=== PATIENT | male | born 1945 | race Caucasian/White ===

== ENCOUNTER 2017-08-16 06:47 | Day surgery (SDC) | payer MEDICARE, MEDICAID ==
--- NOTE | 2017-08-15 09:47 | Pre-Procedure Note/Attestation ---
Pre-Procedure Note/Attestation Complete Prior to Procedure Planned Procedure: bilateral Procedure Narrative: 1- Ptosis correction upper lids. 2- Entropion correction upper lids. 3-Blepharoplasty uppers lids. 4-conjunctivoplasty with amniotic membrane graft, both eyes. 5-pterygium resection with amniotic membrane graft,both eyes. 6- symblepharon removal with amniotic membrane graft, both eyes. Indications for Procedure Pre-Operative Diagnosis: 1- Blepharoptosis upper lids 2-Entropion upper lids. 3-Blepharochalasis upper lids 4- Conjunctivochalasis, both eyes. 5-pterygium, both eyes. 6-symblepharon, both eyes. Attestation I attest that I discussed the nature of the procedure; its benefits; risks and complications; and alternatives (and the risks and benefits of such alternatives ), prior to the procedure, with the patient (or the patient's legal sales solutions representative). I attest that, if there was a reasonable possibility of needing a blood transfusion, the patient (or the patient's legal sales solutions representative) was given the [facility] standardized written summary, pursuant to the Yordan Maryann Blood Safety Act ([place] Health and Safety Code # 1645, as amended). I attest that I re-evaluated the patient just prior to the surgery and that there has been no change in the patient's H&P, except as documented below: Emerson Seals MD Aug 15, 2017 09:47
[2017-08-16] VITALS (9 sets, daily range): BP systolic 122–150; BP diastolic 71–87
[~2017-08-16] VITALS: Ht 167.6 cm; Wt 95.3 kg
[~2017-08-16 06:47] MED LIST: ASPIR 8181 MG ORAL; Akten 3.5% 1ml Btl BOTH EYES ONE; LOTREL 5-20 MG1 EACH ORAL; METOPROLOL TART50 M1 ORAL; Maxitrol Opth Oint 3.5gm BOTH EYES ONE; PLAVIX75 MG ORAL
[2017-08-16] MEDS ORDERED: Lidocaine 2% 20mg/ml/Epi 0.005mg/ml 20ml vial ONE (07:26)
[2017-08-16] MEDS ORDERED: Maxitrol Opth Oint 3.5gm ONE (07:26)
[2017-08-16] MEDS ORDERED: Maxitrol Opth Susp 5ml ONE (07:26)
[2017-08-16] MEDS ORDERED: Bupivacaine 0.75% 30ml vial INJ ONE ×2 (07:27→07:28)
[2017-08-16] MEDS ORDERED: Tetracaine 0.5% Opth 4ml Soln ONE (07:27)
[2017-08-16] MEDS ORDERED: Lidocaine 2% 20mg/ml/Epi 0.005mg/ml 20ml vial INJ ONE (07:30)
[2017-08-16] MEDS ORDERED: Povidone-Iodine 5% opth solution ONE (07:46)
[2017-08-16] MEDS ORDERED: BSS 15ml BTL ONE (07:46)
[2017-08-16] MEDS ORDERED: LR 1000ml 1,000 ML IVLG SCH (07:47)
--- NOTE | 2017-08-16 07:54 | Anethesia Preoperative Eval ---
Anesthesia Pre-op PMH/ROS General Date of Evaluation: Aug 16, 2017 Time of Evaluation: 07:40 Anesthesiologist: Sera ASA Score: ASA 3 Mallampati Score Class I : Soft palate, uvula, fauces, pillars visible Class II: Soft palate, uvula, fauces visible Class III: Soft palate, base of uvula visible Class IV: Only hard plate visible Mallampati Classification: Class II Surgeon: Bozena Diagnosis: Blepharochalasis, conjuntaivolaisis, ptyrigium Anesthesia History: none - Blepharoplasty, conjunctivoplasty, ptyregium Allergies: Coded Allergies: No Known Allergies (Unverified , 08/15/17) Past Medical History Cardiovascular: Reports: HTN, CAD, NE; Denies: valve dz, arrhythmia, other Pulmonary: Denies: asthma, COPD, PRAVEEN, other Gastrointestinal/Genitourinary: Denies: GERD, CRI, ESRD, other Neurologic/Psychiatric: Denies: dementia, CVA, depression/anxiety, TIA, other Endocrine: Reports: DM; Denies: hypothyroidism, steroids, other HEENT: Reports: cataract (L), cataract (R); Denies: glaucoma, [place] (L), [place] (R), other Hematology/Immune: Denies: anemia, DVT, bleeding disorder, other Musculoskeletal/Integumentary: Reports: OA PMH Narrative: DM, HTN, CAD (s/p CABG and stents X 6), OA PSxH Narrative: CABG, coronary stents, bilateral TKR, lumbar surgery Anesthesia Pre-op Phys. Exam Physician Exam Last Vital Signs Date Time Temp Pulse Resp B/P (MAP) Pulse Ox O2 Delivery O2 Flow Rate FiO2 08/16/17 07:24 97.7 53 20 133/87 96 Room Air 97.7 Constitutional: NAD Neurologic: CN 2-12 intact Cardiovascular: RRR, no M/R/G Respiratory: CTA Gastrointestinal: S/NT/ND Airway Exam Mallampati Score: Class II MO: full ROM: full Teeth: intact Anesthesia Pre-op A/P Risk Assessment & Plan Assessment: Class 3 patient for eye surgery including blepharoplasty Plan: MAC Status Change Before Surgery: No Pre-Antibiotics Drug: None Yordan Zamora MD Aug 16, 2017 07:54
--- NOTE | 2017-08-16 07:54 | Immediate Post-Op Evaluation ---
Immediate Post-Op Evalulation Immediate Post-Op Evalulation Procedure: Blepharoplasty, conjunctivoplasty, ptyregium Date of Evaluation: Aug 16, 2017 Time of Evaluation: 10:50 IV Fluids: 500 Blood Pressure Systolic: 130 Blood Pressure Diastolic: 82 Pulse Rate: 50 Respiratory Rate: 21 O2 Sat by Pulse Oximetry: 96 Temperature (Fahrenheit): 97.6 Pain Score (1-10): 0 Nausea: No Vomiting: No Complications No complication Patient Status: awake, patent, none Hydration Status: adequate Drug: None Yordan Zamora MD Aug 16, 2017 07:54
[2017-08-16] MEDS ORDERED: Alfentanil 2ml Inj ONE (08:00)
[2017-08-16] MEDS ORDERED: LR 1000ml 1,000 ML IV SCH (08:00)
[2017-08-16] MEDS ORDERED: fentaNYL 100 mcg/2 mL IV PRN (08:00)
[2017-08-16] MEDS ORDERED: NS Irrig 1000ml ONE (08:00)
[2017-08-16] MEDS ORDERED: DiphenhydrAMINE 50mg/ml Inj IVP PRN (08:00)
[2017-08-16] MEDS ORDERED: Sterile Water Irrig 1000ml IRRIG ONE (08:00)
[2017-08-16] MEDS ORDERED: LR 1000ml ONE (08:00)
[2017-08-16] MEDS ORDERED: Midazolam 2mg/2ml Inj ONE (08:00)
[2017-08-16] MEDS ORDERED: Maxitrol Opth Oint 3.5gm OP ONE (09:20)
--- NOTE | 2017-08-16 10:43 | 48 Hour Post Anesthesia Eval ---
Post Anesthesia Evaluation Procedure: Blepharoplasty, conjunctivoplasty, ptyregium Date of Evaluation: Aug 16, 2017 Time of Evaluation: 11:15 Blood Pressure Systolic: 134 0: 72 Pulse Rate: 58 Respiratory Rate: 20 O2 Sat by Pulse Oximetry: 96 Airway: patent Nausea: No Vomiting: No Pain Intensity: 0 Hydration Status: adequate Cardiopulmonary Status: Stable Mental Status/LOC: patient returned to baseline Follow-up Care/Observations: As per surgery Post-Anesthesia Complications: No anesthetic complications Follow-up care needed: N/A Yordan Zamora MD Aug 16, 2017 10:43
--- NOTE | 2017-08-16 10:46 | Discharge Summary ---
Discharge Summary Discharge Summary Discharge Summary DATE OF ADMISSION: 08/16/2017 DATE OF DISCHARGE: 08/16/2017 REASON FOR HOSPITALIZATION: SURGERY PERFORMED: 1- pterygium excision with graft 2- superficial keratectomy 3 - symblepharon excision 4- conjunctivoplasty 4- Ptosis correction upper lids 5- Entropion correction upper lids 6- Blepharoplasty upper lids 2- CONDITION IN THE HOSPITAL:The patient tolerated the surgery without complications. DISCHARGE CONDITION: The patient was stable at discharge. DISCHARGE MEDICATIONS: 1. Vigamox eye drops one drop q.i.d, OU 2. Prednisolone one drop q.i.d, OU 3. Maxitrol eye ointment apply to lids 4- Keflex 500mg op q8h. POSTOPERATIVE ORDERS: The patient has to rest at home. No bending, No lifting, No watching Television tonight. POSTOPERATIVE FOLLOW UP: The patient will be followed in my office tomorrow morning at 7 o'clock. Emerson Seals MD Aug 16, 2017 10:46
--- NOTE | 2017-08-16 10:53 | Brief Operative Note ---
Immediate Post Operative Note Operative Note Chief Complaint: Pain, FBS, Blurry vision, droopy eyelids, difficulty driving and reading OU Pre-op Diagnosis: 1- Blepharoptosis upper lids 2-Entropion upper lids. 3-Blepharochalasis upper lids 4- Conjunctivochalasis, both eyes. 5-pterygium, both eyes. 6-symblepharon, both eyes. Procedure: 1- Pterygium excision, bilaterally with graft 2- Superficial keratectomy OU 3- Symblepharon excision OU 4- Conjunctivoplasty, OU 5- Entropion correction, upper lids 6- Ptosis correction, upper lids 7- Blepharoplasty, upper lids 8-Amniotic membrane graft, OU Post-op Diagnosis: same as pre-op Surgeon: Emerson Seals MD Director Of Compensation: Florencio Additional Surgeons: None Anesthesiologist: Dr. Zamora Anesthesia: local, MAC Specimen: yes Complications: none Condition: stable Fluids: 600ml Estimated Blood Loss: minimal Drains: none Implant(s) used?: No Emerson Seals MD Aug 16, 2017 10:53
--- NOTE | 2017-08-17 03:30 | Operative Note - Dictated ---
DATE OF OPERATION: 08/16/2017 FACILITY: [facility]. SURGEON: Emerson Seals M.D. MANAGER SOUND: None. ANESTHESIOLOGIST: Yordan Zamora M.D. ANESTHESIA: Monitored anesthesia care (MAC) plus local anesthesia with lidocaine 2% with epinephrine 1:100,000 plus Marcaine 0.75% 50:50. PREOPERATIVE DIAGNOSES: 1. Giant pterygium, bilaterally. 2. Corneal scar, bilaterally. 3. Symblepharon, bilaterally. 4. Conjunctivochalasis, bilaterally. 5. Ptosis, upper lids. 6. Entropion, upper lids. 7. Dermatochalasis and blepharochalasis, bilaterally. POSTOPERATIVE DIAGNOSES: 1. Giant pterygium, bilaterally. 2. Corneal scar, bilaterally. 3. Symblepharon, bilaterally. 4. Conjunctivochalasis, bilaterally. 5. Ptosis, upper lids. 6. Entropion, upper lids. 7. Dermatochalasis and blepharochalasis, bilaterally. SURGERY PERFORMED: 1. Pterygium excision with graft bilaterally. 2. Superficial keratotomy bilaterally 3. Symblepharon excision bilaterally 4. Conjunctivoplasty bilaterally. 5. Amniotic membrane graft bilaterally. 6. Ptosis correction, upper lids. 7. Entropion correction, upper lids. 8. Blepharoplasty, upper lids. INDICATION FOR SURGERY: The patient is a 71-year-old gentleman with history of type 2 diabetes mellitus, hypertension, coronary artery disease, peripheral vascular disease, hyperlipidemia, neuropathy, thrombocytosis, . He is taking medications including metformin, Lyrica 75 mg, metoprolol tartrate 50 mg, Plavix 75 mg, simvastatin 20 mg, aspirin 81 mg, Flomax 0.4 mg, metformin 1000 mg, amlodipine besylate 5 mg, diclofenac sodium 75 mg, furosemide 20 mg, losartan potassium 50 mg, Spiriva 18 mcg, Symbicort, and ranitidine. He has had cataract surgery bilaterally one year ago and he is happy with the result. Now, he is complaining of blurry vision and difficulty driving because of upper lid droopiness, sharp pain, weakness, redness, and difficulty movement of eyes . He is suffering from many diseases including bilateral giant pterygium, symblepharon, and conjunctivochalasis in both eyes and meanwhile he had ptosis, entropion upper lids, dermatochalasis and blepharochalasis. This is a progressive dermatochalasis skin disease with resulting changes of a corneal curvature, which induces astigmatism with covering of the visual acuity that is interruption for driving and pterygium made lot of astigmatism and corneal scar. His symblepharon is the cause of difficulty movement of eyes. The severity of the patient's dermatochalasis, ptosis, entropion, pterygium, and corneal scar are clearly demonstrated on enclosed photos and the patient's visual neumann. The only solution for this patient is correction of all those pathology and disfigurement and anatomy changes with surgery. There is no alternative for that. INFORMED CONSENT: The nature of the surgery, risks, benefits, and potential complications were all explained to the patient in detail in his language, Farsi. He voiced understanding. The potential complications including, but not limited to bleeding, infection, corneal exposure, over correction, under correction, ecchymosis, swelling of the face, hematoma, dry eye syndrome, loss of eyelashes, loss of eyebrows, inequality of both eyes, change in vision, even corneal perforation, loss of vision, and loss of the eye were all explained in detail to the patient, who voiced understanding and accepted all the complications. Then, he signed the consent form, which is in the chart. DESCRIPTION OF SURGERY AND FINDINGS: Following that, the patient was taken to the operation room in a stable condition. Lidocaine gel, Akten 3.5% were applied to the conjunctiva of both eyes. Following that, the upper lids were marked with a marking pen 10 mm above the root of the eyelashes and 15 mm below the lower part of the eyebrows. About 25 mm of the skin was left to facilitate the eye closure. IV sedation was given by the anesthesiologist, Dr. Zamora. After adequate anesthesia and sedation has been achieved, a speculum was placed in the right eye first. Subconjunctival injection with lidocaine was performed and the conjunctiva was anesthetized. Following that, peritomy was performed 360 degrees and conjunctiva was undermined and dissected to the aponeurosis. Following that, amniotic membrane was applied to the sclerae. Following that, the conjunctiva was stitched on top of the amniotic membrane. Same procedure was done in the left eye. Hemostasis was performed and the stitches were trimmed. Next step, upper eyelid area and frontal head was anesthetized with 2% lidocaine with epinephrine mixed with Marcaine. Following that, using a Bovie knife, the skin and subdermal tissue were dissected from the orbicularis oculi muscle and excised. Narrow cuts were made into the orbicularis oculi muscle. Hemostasis was performed. The two fat compartments were released and the fat compartments were sculptured conservatively. Following that, the levator palpebrae superioris muscle tendon was tacked about 6 mm inside and stitched with 6-0 Vicryl and then the stitches were trimmed. A wedge groove was made 3 mm above the root of the upper eyelid lashes. Following that, the tarsal plate was grooved. The groove was marked 10 mm above the lashes inside the tarsal plate. Following that, the tarsal material inside the groove was excised with Vannas scissors and the lids of the groove were stitched with 6-0 Vicryl. The sutures were trimmed and hemostasis was performed. The same procedure was performed in the left eye. Following that, the orbicularis oculi muscle was stitched with 6-0 Vicryl and and the sutures were trimmed. Following that, hemostasis was performed and the skin was stitched with 6-0 plain gut in the fashion of continuous running in both sides. At the end of the procedure, Maxitrol was applied to the skin and to the wound. Following that, the patient was transferred to the recovery room. In the recovery room, wound was checked for bleeding and there was no bleeding. Ice packs were applied to the wound. Postoperative orders and directions were given to the patient. The patient will be discharged home upon stabilization. The patient will be followed in my office tomorrow morning. Emerson Seals M.D. DR: Umair JOB#: [id number] CC:
[2017-08-17] MEDS ORDERED: [UNRECOGNIZED DRUG - OTHER] MISC ONE (06:18)
== END 2017-08-16 12:30 | disposition home or self-care (01) ==
LOC: SUR 06:47
DX: H11.003 Unspecified pterygium of eye, bilateral (principal); H17.9 Unspecified corneal scar and opacity; H11.23 Symblepharon; H11.823 Conjunctivochalasis, bilateral; H02.403 Unspecified ptosis of bilateral eyelids; H02.004 Unspecified entropion of left upper eyelid; H02.001 Unspecified entropion of right upper eyelid; H02.834 Dermatochalasis of left upper eyelid; H02.831 Dermatochalasis of right upper eyelid; F17.200 Nicotine dependence, unspecified, uncomplicated; E11.40 Type 2 diabetes mellitus with diabetic neuropathy, unspecified; I11.9 Hypertensive heart disease without heart failure; E78.5 Hyperlipidemia, unspecified; Z79.02 Long term (current) use of antithrombotics/antiplatelets; Z79.84 Long term (current) use of oral hypoglycemic drugs; Z79.82 Long term (current) use of aspirin; I25.2 Old myocardial infarction; Z95.1 Presence of aortocoronary bypass graft; M19.90 Unspecified osteoarthritis, unspecified site; Z96.653 Presence of artificial knee joint, bilateral
CPT/HCPCS: 67924; 68320; 82962; J2250; J3010; J3490; J7120